=== PATIENT | female | born 1940 | race African-American/Black ===

== ENCOUNTER 2017-08-01 12:45 | Inpatient (IN) | payer OTHER, MEDICAID ==
[~2017-08-01] VITALS: Ht 160 cm; Wt 61.5 kg
[~2017-08-01 12:45] MED LIST: ALBUAER3 IN; AMOX-263 PO; PRED-188 PO
[2017-08-01] MEDS ORDERED: SODIUM CHLORIDE 0.9% 500 ML IVB ONE (12:52)
[2017-08-01 13:57] LABS: Basophils # (auto) 0 uL; Eosinophils # (auto) 0 uL; Eosinophils % (auto) 0.2 % (0.0-7.0); Hemoglobin 12.3 g/dL (12.2-16.2); Monocytes # (auto) 0.5 uL; Neutrophils # (auto) 8.2 uL; Nucleated Red Blood Cells % 0.1 %
[2017-08-01 13:59] LABS: Basophils % (auto) 0.4 % (0.0-2.0); Hematocrit 37.2 % (36.0-46.0); Lymphocytes # (auto) 1.3 uL; Lymphocytes % (auto) 12.9 % (10.0-50.0); Mean Corpuscular Hemoglobin 33.9 pg (28.0-32.0); Mean Corpuscular Volume 102.5 fL (80.0-100.0); Monocytes % (auto) 4.5 % (0.0-12.0); Platelet Count (auto) 138 10^3/uL (140-450); Red Blood Cells 3.63 10^6/uL (4.0-5.20); Red Cell Distribution Width 14.8 % (11.8-14.3)
[2017-08-01 14:04] LABS: INR 1.08 (0.9-1.15); Prothrombin Time 11.8 sec (9.37-12.3)
[2017-08-01 14:10] LABS: Lactic Acid w/Reflex 3.7 mmol/L (0.4-2.0)
[2017-08-01 14:13] LABS: Alanine Aminotransferase 24 U/L (13-56); Albumin 2.9 g/dL (3.4-5.0); Alkaline Phosphatase 100 U/L (45-117); Anion Gap 10 (5-15); Aspartate Aminotransferase 74 U/L (15-37); BUN/Creatinine Ratio 16.2; Bilirubin, Total 0.6 mg/dL (0.2-1.0); Blood Alcohol < 3.0 mg/dL (0-5); Blood Urea Nitrogen 17 mg/dL (7-18); Carbon Dioxide 21 mmol/L (21-32); Chloride 111 mmol/L (98-107); GFR African American 65 mL/min; GFR Non-African American 54 mL/min; Glucose 217 mg/dL (74-106); Magnesium 2.2 mg/dL (1.6-2.6); Potassium 4.3 mmol/L (3.5-5.1); Sodium 142 mmol/L (136-145); Total Protein 6.9 g/dL (6.4-8.2)
[2017-08-01] MEDS ORDERED: LACTULOSE 20Gm/30ML SOLN PO PRN (14:30)
[2017-08-01] MEDS ORDERED: HYDROcodone-ACET 5/325MG TAB PO PRN (14:30)
[2017-08-01] MEDS ORDERED: MORPHINE SULFATE 10 MG/ML INJ 1ML SDV IV PRN (14:30)
[2017-08-01] MEDS ORDERED: ACETAMINOPHEN 500 MG TAB PO PRN (14:30)
[2017-08-01] MEDS ORDERED: DEXTROSE (50%) 50ML SYRG IV PRN (14:30)
[2017-08-01] MEDS ORDERED: NITROGLYCERIN 0.4 MG SL TAB SL PRN (14:30)
[2017-08-01] MEDS ORDERED: PROMETHAZINE HCL 25 MG/ML 1ML IV PRN (14:30)
[2017-08-01] MEDS ORDERED: TEMAZEPAM 15 MG CAP PO PRN (14:30)
[2017-08-01] MEDS ORDERED: SODIUM CHLORIDE 0.9% 500 ML IV ONE (14:45)
[2017-08-01] MEDS ORDERED: ASPirin 81 mg TAB PO ONE (15:00)
[2017-08-01] MEDS ORDERED: MORPHINE SULF INJ 2 MG/ML SYRINGE 1ML IV PRN (15:00)
[2017-08-01] MEDS: LORazepam 0.5 MG TAB PO PRN (15:01)
[2017-08-01] MEDS: ENOXAPARIN SOD 40 MG/0.4 ML SYRINGE SC SCH (15:07)
[2017-08-01 15:38] LABS: Folate (Folic Acid) 10.74 ng/mL (5.38-24)
[2017-08-01] MEDS ORDERED: THIAMINE HCL 100 MG/ML 2ML VIAL IV ONE (15:45)
[2017-08-01] MEDS ORDERED: LORazepam 2MG/ML-1ML VIAL IV PRN (16:00)
[2017-08-01] MEDS: SODIUM CHLORIDE 0.9% 1,000 ML IV SCH (16:00)
[2017-08-01] MEDS: ACCU-CHEK COMFORT CURVE STRIP VI SCH ×2 (16:30→22:01)
[2017-08-01] MEDS: InsuLIN REG 1unit/0.01ml Soln (100units/ml) SC SCH ×2 (16:30→22:00)
[2017-08-01 16:40] VITALS: BP 129/85
[2017-08-01 17:15] VITALS: BP 129/85
[2017-08-01] MEDS ORDERED: THIAMINE INJ 100 MG, MULTIPLE VITAMIN 10 ML, FOLIC ACID 1 MG, MAGNESIUM SULF SDV 50% 8 ... IV SCH ×5 (18:00)
[2017-08-01] MEDS: chlordiazePOXIDE HCL 5 MG CAP PO SCH ×2 (18:21→23:55)
[2017-08-01 20:00] VITALS: BP 113/77
[2017-08-01 22:00] VITALS: BP 113/77
[2017-08-01] MEDS ORDERED: ATORVASTATIN 20 MG TAB PO SCH (22:00)
[2017-08-02] MEDS: chlordiazePOXIDE HCL 25 MG CAP PO PRN ×2 (02:49→09:41)
[2017-08-02] MEDS: LORazepam 0.5 MG TAB PO PRN (02:49)
[2017-08-02 05:00] VITALS: BP 97/73
[2017-08-02] MEDS: SODIUM CHLORIDE 0.9% 1,000 ML IV SCH (05:05)
[2017-08-02] MEDS: InsuLIN REG 1unit/0.01ml Soln (100units/ml) SC SCH ×2 (05:58→11:30)
[2017-08-02] MEDS: ACCU-CHEK COMFORT CURVE STRIP VI SCH ×2 (05:58→11:57)
[2017-08-02] MEDS: chlordiazePOXIDE HCL 5 MG CAP PO SCH ×2 (05:58→11:58)
[2017-08-02 08:00] VITALS: BP 91/64
[2017-08-02 09:25] VITALS: BP 91/64
[2017-08-02] MEDS: ENOXAPARIN SOD 40 MG/0.4 ML SYRINGE SC SCH (09:40)
[2017-08-02 09:51] LABS: Urine Bacteria NONE SEEN /hpf (None Seen); Urine Blood 3+ /uL (Negative); Urine Mucus FEW (None Seen); Urine Specific Gravity 1.025 (1.001-1.035); Urine WBC 53 /hpf (0 - 5)
[2017-08-02 09:52] LABS: Alcohol, Urine < 3.0 mg/dL (0-5); Amphetamine Screen, Urine NEGATIVE (NEGATIVE); Barbiturate Scree,Urine NEGATIVE (NEGATIVE); Benzodiazephine Screen, Urine POSITIVE (NEGATIVE); Cannabinoid Screen, Urine NEGATIVE (NEGATIVE); Cocaine Screen, Urine NEGATIVE (NEGATIVE); Opiate Scree,Urine POSITIVE (NEGATIVE); Phencyclidine Screen, Urine NEGATIVE (NEGATIVE)
[2017-08-02] MEDS ORDERED: THIAMINE HCL 100 MG/ML 2ML VIAL IV SCH (10:00)
[2017-08-02] MEDS ORDERED: ASPirin 81 mg TAB PO SCH (10:00)
[2017-08-02] MEDS ORDERED: ENOXAPARIN SOD 40 MG/0.4 ML SYRINGE SC SCH (10:00)
[2017-08-02] MEDS ORDERED: PANTOPRAZOLE 40 MG TAB PO SCH (10:00)
[2017-08-02] MEDS ORDERED: SODIUM CHLORIDE 0.9% 1,000 ML IV SCH (11:15)
[2017-08-02 12:59] VITALS: BP 90/58
== END 2017-08-02 14:30 | disposition short-term general hospital (02) | DRG 100 ==
LOC: ER 12:45 → EDBD 12:45 → TELE 12:46 → TELE-CENTR 16:40
PROVIDERS: ADMIT Internal Medicine; ATTEND Internal Medicine
DX: G40.89 Other seizures (principal); I21.4 Non-ST elevation (NSTEMI) myocardial infarction; E44.0 Moderate protein-calorie malnutrition; I95.89 Other hypotension; E11.40 Type 2 diabetes mellitus with diabetic neuropathy, unspecified; E87.8 Other disorders of electrolyte and fluid balance, not elsewhere classified; E11.65 Type 2 diabetes mellitus with hyperglycemia; I67.2 Cerebral atherosclerosis; S02.2XXA Fracture of nasal bones, initial encounter for closed fracture; F10.20 Alcohol dependence, uncomplicated; F17.210 Nicotine dependence, cigarettes, uncomplicated; X58.XXXA Exposure to other specified factors, initial encounter; M12.9 Arthropathy, unspecified; Z90.710 Acquired absence of both cervix and uterus; Z83.3 Family history of diabetes mellitus; Y93.89 Activity, other specified; Y92.89 Other specified places as the place of occurrence of the external cause; S52.91XD Unspecified fracture of right forearm, subsequent encounter for closed fracture with routine healing
CPT/HCPCS: 36415; 51702; 70450; 71045; 73200; 80053; 80061; 80307; 80320; 81001; 82550; 82607; 82746; 82962; 83036; 83605; 83735; 84443; 84484; 85025; 85610; 85652; 85730; 87040; 93005; 93306; 93886; 94761; 95819; 96361; 96374